=== PATIENT | female | born 1950 | race Caucasian/White ===

== ENCOUNTER 2020-01-25 09:28 | Emergency (ER) | payer MEDICARE, MEDICAID, SELFPAY ==
--- NOTE | 2020-01-25 09:31 | ED.GENADULT ---
HPI - General Adult General Chief complaint: Unspecified Stated complaint: unresponsive Time Seen by Provider: 01/25/20 09:31 History of Present Illness HPI narrative: Patient arrives via EMS for low blood sugar and poor breathing. They were doing bagging and route. She in route. Review of Systems Review of Systems: Narrative: Review of systems is not available because the patient is . Exam Narrative: Exam Narrative: Patient is elderly with no spontaneous movement. Eyes are fixed and dilated. She is still warm. There is no spontaneous respiration. There is no pulse. Course Consultations Consultation #1: Left a message for Dora Kruse at [phone], that we had a relative of hers and to call us back. Date: 01/25/20 Time: 09:36 Consultation #2: Dr. Carlos A Currie, called to check on his patient, and was told about the patient expiring in route. He will sign the certificate. Date: 01/25/20 Time: 09:39 Consultation #3: Tried to call Mr. Kruse at [phone] and got no answer. Date: 01/25/20 Time: 10:15 Additional Consultation(s): Called Jaz Aixa, and told her that the patient had passed, and she is going to call Dora Kruse. 11:45 AM. Vital Signs Vital signs: Vital Signs Pulse Rate 0 L 01/25/20 09:35 Pulse Rate 0 L 01/25/20 09:35 Medical Decision Making Vital Signs Vital Signs: Vital Signs Pulse Rate 0 L 01/25/20 09:35 Pulse Rate 0 L 01/25/20 09:35 Discharge Plan Discharge Clinical Impression: D.O.A. ( on arrival) Patient Disposition: Condition:
[2020-01-25 09:35] VITALS: PULSE 0
== END 2020-01-25 13:34 | disposition expired ==
LOC: ANHED 09:54
PROVIDERS: Emergency Provider Emergency Medicine
DX: R40.20 Unspecified coma; E16.2 Hypoglycemia, unspecified
CPT/HCPCS: 99282